=== PATIENT | male | born 1975 | race Caucasian/White ===

== ENCOUNTER 2024-05-11 11:55 | Day surgery (SDC) | payer BC ==
[~2024-05-11 11:55] MED LIST: Propofol 200 MG/20 ML SDV ONE
[2024-05-11] MEDS ORDERED: Sodium Chloride 0.9% 10 ML Syringe FLUSH PRN (12:00)
[2024-05-11] MEDS: Lactated Ringers 1,000 ML IV SCH (12:18)
[2024-05-11] MEDS ORDERED: Propofol 200 MG/20 ML SDV ONE ×2 (13:09→13:22)
== END 2024-05-11 14:15 | disposition home or self-care (01) ==
LOC: LL.SDS 11:55
PROVIDERS: ATTEND Surgery
DX: Z12.11 Encounter for screening for malignant neoplasm of colon (principal); D12.4 Benign neoplasm of descending colon; D12.8 Benign neoplasm of rectum; R19.5 Other fecal abnormalities; E11.9 Type 2 diabetes mellitus without complications; I10 Essential (primary) hypertension; F41.9 Anxiety disorder, unspecified; E78.01 Familial hypercholesterolemia; R79.89 Other specified abnormal findings of blood chemistry; E66.9 Obesity, unspecified; F17.210 Nicotine dependence, cigarettes, uncomplicated; Z79.899 Other long term (current) drug therapy; Z79.84 Long term (current) use of oral hypoglycemic drugs; Z88.8 Allergy status to other drugs, medicaments and biological substances; Z80.0 Family history of malignant neoplasm of digestive organs; Z68.31 Body mass index [BMI] 31.0-31.9, adult
CPT/HCPCS: 45385; 82947; J2704; J7120